=== PATIENT | female | born 1930 | race Caucasian/White ===

== ENCOUNTER 2018-10-02 02:14 | Inpatient (IN) | payer OTHER, MEDICAID ==
[2018-10-02] VITALS (7 sets, daily range): BP systolic 114–162; BP diastolic 44–66
[~2018-10-02] VITALS: Ht 160 cm; Wt 138.3 kg
[~2018-10-02 02:14] MED LIST: ACETAMINOPHEN-1 EAC1 PO; AMOXICILLIN 50500 MG PO; ASPIR 8181 MG PO; BACTRIM DS TAB1 EACH PO; BISACODYL SUPP10 MG RECTAL; COLACE100 MG PO; ELIQUIS5 MG PO; ENOXAPARIN40 MG/0.1 SUBQ; IPRAT-ALBUT 0.5-3 ML INH; LASIX 40 MG TAB40 M2 PO; MILK OF MA2400 MG/10 PO; MIRALAX17 GM PO; NOHOMEMEDICATIONS; NORCO 5-325 TA1 EACH PO; ONDANSETRON HCL4 M2 PO; POTASSIUM20 PO; ROBITUSSIN100 MG/53 PO; SENNA8.6 MG PO; SUDAFED 12 HOU120 MG PO; TESSALON PERLE100 MG PO; XANAX 0.25 MG0.25 MG PO; ZITHROMAX500 MG PO; ZOFRAN4 MG PO; ZOLOFT25 MG PO
[2018-10-02] MEDS ORDERED: ALBUTEROL2.5 MG/31 (02:38)
[2018-10-02] MEDS ORDERED: SPIRIVA (02:38)
[2018-10-02] MEDS ORDERED: LASIX 40 MG TAB40 M2 (02:38)
[2018-10-02] MEDS ORDERED: VALTREX 500 MG500 M1 (02:39)
[2018-10-02] MEDS ORDERED: CLARITIN10 MG (02:39)
[2018-10-02] MEDS ORDERED: POTASSIUM20 (02:39)
[2018-10-02 03:23] LABS: ABSOLUTE LYMPHOCYTES 0.9 thou/uL (0.8-5.3); ABSOLUTE MONOCYTES 0.4 thou/uL (0.0-1.2); ABSOLUTE NEUTROPHILS 3.9 thou/uL (1.6-8.1); BASOPHILS 0.6 %; EOSINOPHILS 0.2 %; HEMATOCRIT 36.9 % (37.0-47.0); HEMOGLOBIN 11.5 gm/dL (12.0-15.0); LYMPHOCYTES 17.8 %; MCH 25.7 pg (26.0-34.0); MCHC 31.1 g/dL (28.0-37.0); MCV 82.7 fL (80.0-100.0); MONOCYTES 7.4 %; MPV 6.6 fl. (7.2-11.1); NUCLEATED RBCS 0 /100WBC; PLATELET COUNT* 218 thou/uL (150-400); RBC 4.46 mil/uL (4.20-5.00); RDW-CV 16.5 % (10.5-14.5); WBC 5.3 thou/uL (4.0-11.0)
[2018-10-02 03:31] LABS: BUN 15 mg/dL (7-18); CHLORIDE 92 mmol/L (98-107); CREATININE 0.5 mg/dL (0.6-1.3); GLUCOSE 122 mg/dL (70-99); POTASSIUM 4.4 mmol/L (3.5-5.1); SODIUM 140 mmol/L (136-145)
[2018-10-02 03:37] LABS: CO2 > 45 mmol/L (21-32)
[2018-10-02 03:42] LABS: ALBUMIN 2.9 g/dL (3.4-5.0); ALKALINE PHOSPHATASE 73 U/L (46-116); NT-PRO BRAIN NAT PEPTIDE 724 pg/mL (<300); SGOT 35 U/L (15-37); SGPT 29 U/L (30-65); TOTAL BILIRUBIN 0.3 mg/dL (<0.1-1.0); TOTAL PROTEIN 8.2 g/dL (6.4-8.2); TROPONIN-I LEVEL <0.06 ng/mL (<0.06)
[2018-10-02 03:46] LABS: BE 16.2 mmol/L (-2 to +3)
[2018-10-02 03:49] LABS: PCO2 99.5 mmHg (35.0-45.0); pH 7.292 (7.340-7.450)
[2018-10-02 04:35] LABS: INFLUENZA A ANTIGEN None Detected (None Detect); INFLUENZA B ANTIGEN None Detected (None Detect)
[2018-10-02 06:39] LABS: BE 21.1 mmol/L (-2 to +3); PO2 80.9 mmHg (75.0-100.0)
[2018-10-02 06:41] LABS: pH 7.268 (7.340-7.450)
[2018-10-02 06:42] LABS: HCO3 53.8 mmol/L (22.0-26.0); PCO2 120.5 mmHg (35.0-45.0)
[2018-10-02] MEDS ORDERED: ACETAMINOPHEN-1 EAC1 PO (08:07)
[2018-10-02 10:28] LABS: BE 20.3 mmol/L (-2 to +3); PO2 93.2 mmHg (75.0-100.0); pH 7.353 (7.340-7.450)
[2018-10-02 10:29] LABS: PCO2 92.4 mmHg (35.0-45.0)
[2018-10-02 10:30] LABS: HCO3 50.2 mmol/L (22.0-26.0)
--- NOTE | 2018-10-02 13:46 | EKG ---
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 : 1930 Requested By: Mikayla Collins Order Number: [id number] MD: Zohaib Calle Measurements Intervals [place] Rate: 91 P: 20 IA: 207 QRS: 15 QRSD: 89 T: 77 QT: 351 QTc: 432 Interpretive Statements Sinus rhythm Borderline prolonged IA interval Low voltage, precordial leads Abnormal R-wave progression, early transition Compared to ECG 10/22/2016 05:15:08 No significant changes Electronically Signed On 10-02-2018 13:46:25 JEWELRY BENCH MOLDER by Zohaib Calle [email or web address] <ELECTRONICALLY SIGNED> By: Zohaib Calle MD, [facility] 10/02/18 1346 8 8 Zohaib Calle MD, [facility] /EPI
[2018-10-03 04:00] VITALS: BP 116/68
[2018-10-03 05:09] LABS: ABSOLUTE LYMPHOCYTES 0.7 thou/uL (0.8-5.3); ABSOLUTE MONOCYTES 0.2 thou/uL (0.0-1.2); ABSOLUTE NEUTROPHILS 3.1 thou/uL (1.6-8.1); BASOPHILS 0.2 %; HEMATOCRIT 35.1 % (37.0-47.0); HEMOGLOBIN 10.8 gm/dL (12.0-15.0); LYMPHOCYTES 16.7 %; MCH 25.4 pg (26.0-34.0); MCHC 30.9 g/dL (28.0-37.0); MCV 82.2 fL (80.0-100.0); MONOCYTES 4.8 %; MPV 6.8 fl. (7.2-11.1); NUCLEATED RBCS 0 /100WBC; PLATELET COUNT* 206 thou/uL (150-400); POLYS 78.3 %; RBC 4.27 mil/uL (4.20-5.00); RDW-CV 16.5 % (10.5-14.5)
[2018-10-03 06:06] LABS: BUN 20 mg/dL (7-18); CALCIUM 8.4 mg/dL (8.5-10.1); CHLORIDE 98 mmol/L (98-107); CREATININE 0.5 mg/dL (0.6-1.3); POTASSIUM 3.8 mmol/L (3.5-5.1); SODIUM 147 mmol/L (136-145)
[2018-10-03 06:23] LABS: CO2 > 45 mmol/L (21-32)
[2018-10-03 06:45] LABS: GLUCOSE 136 mg/dL (70-99)
[2018-10-03 08:35] VITALS: BP 127/36
[2018-10-03 10:09] LABS: BE 18.6 mmol/L (-2 to +3); PO2 64.5 mmHg (75.0-100.0); pH 7.433 (7.340-7.450)
--- NOTE | 2018-10-03 10:33 | CON ---
[facility] [address] [place] [address] CONSULTATION Name: AMARIS MENSAH Room: [address] IN .R.#: [id number] Admission: 10/02/18 Attend Phys: Mando Franklin Discharge: Date of : 34 Report #: [id number] THIS REPORT FOR: //name// CC: Luis Enrique Bell DATE OF SERVICE: 10/02/2018 REASON FOR CONSULTATION: Respiratory failure. HISTORY OF PRESENT ILLNESS: Daughter at the bedside helped with the history, although the patient was awake and she provided some history through the BiPAP mask. This is an 88-year-old female patient, resident of a nursing facility, brought in overnight for shortness of breath. Per the daughter, the patient is on oxygen at home; she is not sure how much, but the patient said around 2-3 liters. The daughter thought her mother had asthma, the patient said no COPD. The patient never smoked in the past. Her shortness of breath had been going on for 3-4 days with cough that is mostly dry. The daughter saw her mother 4 days ago and she noticed that her mental status is not at baseline. She forgot that she had lunch that day. There is no mention of sick contacts. The patient did not have history of nasal discharge, obstruction or sore throat. Per the daughter, the patient is on as needed nebulization treatments. The patient denied any pain. The patient was in respiratory distress with hypercapnia and she was placed on BiPAP overnight. She has multiple sets of ABGs reviewed and will be discussed below. The patient has history of DVT. Going back to 2016, she received anticoagulation for a few months. It sounded like it was provoked after a procedure at that time. The patient and her daughter declined any history to suggest aspiration or choking with meals. PAST MEDICAL HISTORY: PE as mentioned above, history of COPD/asthma, history of psoriasis. There is history of PE. 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 Does not smoke currently, but apparently, she had known significant history of smoking in the past per the family. Does not drink alcohol. Resident of a nursing facility. PAST SURGICAL HISTORY: No major chest surgery. FAMILY HISTORY: Positive for coronary artery disease. ALLERGIES: None. HOME MEDICATIONS: DuoNeb, Spiriva, Lasix, loratadine, aspirin. REVIEW OF SYSTEMS: She has no fever, no chills, no visual changes, no sputum production, no palpitation, no chest pain, no change in bowel [place], [place] [address] CONSULTATION Name: WESTTeaAMARIS Gilmore Room: [address] IN [facility]#: [id number] Admission: 10/02/18 Attend Phys: Mando Franklin Discharge: Date of : 34 Report #: [id number] she has tendency towards constipation. No dysuria, frequency or urgency. No back pain, no abdominal pain. Per the daughter, the patient is bed bound, does not move much. PHYSICAL EXAMINATION: GENERAL: She was on BiPAP at 60%. Awake, alert, answers question properly through the BiPAP mask. VITAL SIGNS: Blood pressure 127/53, pulse rate of 95, temperature 37.4. HEENT: Overweight lady with BiPAP mask in place, did not take the BiPAP mask off. I did not examine oral cavity. External ear looks healthy and normal. NECK: Full range of movement. CHEST: Diminished air movement bilaterally, prolonged expiratory phase, some crackles. No definite wheezes. HEART: S1, S2, no murmur. ABDOMEN: Obese, soft, lax, benign, nontender, positive bowel sounds. No masses felt. EXTREMITIES: Lower extremity, some chronic lymphedema noted. No calf tenderness. No signs of DVT. PSYCHIATRIC: Mood and affect seems to be appropriate, answering question properly. Good insight and judgment. NEUROLOGIC: Moving 4 extremities spontaneously. No focal weakness. LABORATORY DATA: Her chest x-ray showed perihilar infiltrate versus a mass. Her white blood count is 5.3, hemoglobin 11.5, platelet of 218. ABGs: The last set of ABG 7.35/92/93 and this was done on 60% on AVAPS. Previous ABGs noted initially 7.29//77 that was on 8 liter oxygen. Her bicarbonate on the BMP is more than 45, the chloride is 92, potassium 4.4, creatinine of 0.5. Rapid test for Influenza A and B negative. IMPRESSION: 1. [id number]-[id number] hypoxic and hypercapnic respiratory failure. 2. Chronic obstructive pulmonary disease/asthma exacerbation. 3. 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 4. History of pulmonary embolism and deep venous thrombosis, off anticoagulation at this point. 5. Abnormal chest x-ray. 6. Pulmonary infiltrate. 7. Pneumonia. PLAN: 1. At this point, continue the antibiotics, scheduled nebulization treatment. I will place her on steroids for now. Continue with AVAPS and awaiting the CT of the chest that would clarify for any evidence of PE. I will order Doppler ultrasound of the lower extremities. 2. Followup on chest imaging. We will make further recommendation after we get the CT of the chest. [address] [place] [address] CONSULTATION Name: AMARIS MENSAH Mando Room: [address] IN ..#: [id number] Admission: 10/02/18 Attend Phys: Mando Franklin Discharge: Date of : 34 Report #: [id number] Thank you for the consult. Discussed with the patient and her daughter, also discussed with RT if we can wean her oxygen down, we can start giving her breaks off the BiPAP as long as she keeps her O2 sats in a safe level, but definitely would recommend the AVAPS p.r.n. and during sleep. <ELECTRONICALLY SIGNED> By: Khanh Goodman MD 10/03/18 1033 1111 [id number] Goodman MD /nt
[2018-10-03 12:21] LABS: HCO3 46.3 mmol/L (22.0-26.0); PCO2 70.9 mmHg (35.0-45.0)
[2018-10-03 12:37] VITALS: BP 127/62
[2018-10-03 16:49] VITALS: BP 139/82
[2018-10-03 20:03] VITALS: BP 118/56
[2018-10-04] VITALS: BP 123/68
[2018-10-04 04:00] VITALS: BP 120/58
[2018-10-04 08:00] VITALS: BP 167/72
[2018-10-04 12:18] VITALS: BP 173/73
[2018-10-04 16:00] VITALS: BP 116/56
[2018-10-04 19:30] VITALS: BP 162/74
[2018-10-05] VITALS: BP 127/79
[2018-10-05 04:00] VITALS: BP 130/80
[2018-10-05 05:31] LABS: ABSOLUTE LYMPHOCYTES 0.7 thou/uL (0.8-5.3); ABSOLUTE MONOCYTES 0.3 thou/uL (0.0-1.2); ABSOLUTE NEUTROPHILS 3.7 thou/uL (1.6-8.1); HEMOGLOBIN 10.9 gm/dL (12.0-15.0); MCH 25.8 pg (26.0-34.0); MCHC 31.1 g/dL (28.0-37.0); MCV 83.1 fL (80.0-100.0); MONOCYTES 5.5 %; MPV 7.5 fl. (7.2-11.1); NUCLEATED RBCS 0 /100WBC; PLATELET COUNT* 210 thou/uL (150-400); POLYS 78.5 %; RDW-CV 16.9 % (10.5-14.5); WBC 4.7 thou/uL (4.0-11.0)
[2018-10-05 05:55] LABS: ALBUMIN 2.7 g/dL (3.4-5.0); CALCIUM 8.4 mg/dL (8.5-10.1); CREATININE 0.6 mg/dL (0.6-1.3); TOTAL BILIRUBIN 0.4 mg/dL (<0.1-1.0); TOTAL PROTEIN 7.2 g/dL (6.4-8.2)
[2018-10-05 07:40] VITALS: BP 109/60
[2018-10-05 12:00] VITALS: BP 158/68
[2018-10-05 14:01] LABS: BE 9.4 mmol/L (-2 to +3); HCO3 36.2 mmol/L (22.0-26.0); PO2 79.3 mmHg (75.0-100.0); pH 7.395 (7.340-7.450)
[2018-10-05 14:07] LABS: PCO2 60.5 mmHg (35.0-45.0)
[2018-10-05 20:10] VITALS: BP 150/76
[2018-10-06 00:16] VITALS: BP 114/49
[2018-10-06 03:57] VITALS: BP 115/62
[2018-10-06 05:38] LABS: CALCIUM 8.5 mg/dL (8.5-10.1); CREATININE 0.6 mg/dL (0.6-1.3); POTASSIUM 3.7 mmol/L (3.5-5.1)
[2018-10-06 08:00] VITALS: BP 105/69
[2018-10-06 12:30] VITALS: BP 135/64
--- NOTE | 2018-10-06 15:00 | 2DMMODE ---
[place] [address] 2 D/M-MODE ECHOCARDIOGRAM Name: AMARIS MENSAH Room: [address] IN .R.#: [id number] Admission: 10/02/18 Attend Phys: Sanchez Bell Discharge: Date of : 34 Date of Service: 10/06/18 1500 Report #: [id number] THIS REPORT FOR: //name// APPROVED REPORT Study performed: 10/06/2018 13:35:15 EXAM: Comprehensive 2D, Doppler, and color-flow Echocardiogram Patient Location: Bedside BSA: 2.25 HR: 67 bpm BP: 115/62 mmHg Other Information Study Quality: Fair Indications Dyspnea 2D Dimensions IVSd: 9.66 (7-11mm) LVOT Diam: 20.61 (18-24mm) LVDd: 45.86 mm PWd: 9.67 (7-11mm) Ascending Ao: 36.09 (22-36mm) LVDs: 30.50 (25-40mm) Aortic Root: 32.57 mm Volumes Left Atrial Volume (Systole) LA ESV Index: 20.90 mL/m2 Aortic Valve AoV Peak Arcadio.: 1.00 m/s AO Peak Gr.: 3.98 mmHg LVOT Max P.45 mmHg AO Mean Gr.: 2.45 mmHg LVOT Mean P.01 mmHg LVOT Max V: 1.05 m/s AO V2 VTI: 20.73 cm LVOT Mean V: 0.64 m/s NEDRA (VTI): 3.76 cm2 LVOT V1 VTI: 23.35 cm Mitral Valve E/A Ratio: 0.73 MV Decel. Time: 250.70 ms MV E Max Arcadio.: 0.71 m/s MV PHT: 72.70 ms MVA (PHT): 3.03 [place]2 [place] [address] 2 D/M-MODE ECHOCARDIOGRAM Name: AMARIS MENSAH Room: [address] IN .R.#: [id number] Admission: 10/02/18 Attend Phys: Sanchez Bell Discharge: Date of : 34 Date of Service: 10/06/18 1500 Report #: [id number] TDI E/Lateral E': 8.88 E/Medial E': 7.89 Medial E' Arcadio.: 0.09 m/s Lateral E' Arcadio.: 0.08 m/s Pulmonary Valve PV Peak Arcadio.: 1.32 m/s PV Peak Gr.: 6.95 mmHg Tricuspid Valve RAP Estimate: 5.00 mmHg TR Peak Gr.: 41.80 mmHg RVSP: 46.80 mmHg PA Pressure: 46.80 mmHg Left Ventricle The left ventricle is normal size. There is normal LV segmental wall motion. There is normal left ventricular wall thickness. Left ventricular systolic function is normal. The left ventricular ejection fraction is within the normal range. LVEF is 60-65%. Grade I - abnormal relaxation pattern. Right Ventricle The right ventricle is normal size. The right ventricular systolic function is normal. Atria The left atrium size is normal. The right atrium size is normal. Aortic Valve Mild aortic valve sclerosis. Trace aortic regurgitation. There is no aortic valvular stenosis. Mitral Valve There is mitral annular calcification. Trace mitral regurgitation. No evidence of mitral valve stenosis. Tricuspid Valve The tricuspid valve is normal in structure. Mild to moderate tricuspid regurgitation. Pulmonic Valve The pulmonary valve is normal in structure. Trace pulmonic regurgitation[place] [address] 2 D/M-MODE ECHOCARDIOGRAM Name: AMARIS MENSAH Room: [address]#: [id number] Admission: 10/02/18 Attend Phys: Sanchez Bell Discharge: Date of : 34 Date of Service: 10/06/18 1500 Report #: [id number] The aortic root is normal in size. IVC is normal in size and collapses >50% with inspiration. Pericardium There is no pericardial effusion. <Conclusion> The left ventricle is normal size. There is normal left ventricular wall thickness. Left ventricular systolic function is normal. The left ventricular ejection fraction is within the normal range. LVEF is 60-65%. Grade I - abnormal relaxation pattern. The right ventricle is normal size. The left atrium size is normal. Mild aortic valve sclerosis. Trace aortic regurgitation. There is no aortic valvular stenosis. Trace mitral regurgitation. No evidence of mitral valve stenosis. The tricuspid valve is normal in structure. Mild to moderate tricuspid regurgitation. IVC is normal in size and collapses >50% with inspiration. There is no pericardial effusion. There is normal LV segmental wall motion. <ELECTRONICALLY SIGNED> By: Chin Walton MD, FACC 10/06/18 1500 1500 1500 Chin Walton MD, FACC /INF
[2018-10-06 16:59] VITALS: BP 124/55
[2018-10-06 20:00] VITALS: BP 110/50
[2018-10-07] VITALS: BP 115/64
[2018-10-07 04:00] VITALS: BP 159/57
[2018-10-07 05:13] LABS: ABSOLUTE LYMPHOCYTES 0.5 thou/uL (0.8-5.3); ABSOLUTE MONOCYTES 0.2 thou/uL (0.0-1.2); ABSOLUTE NEUTROPHILS 3.8 thou/uL (1.6-8.1); BASOPHILS 0.1 %; HEMATOCRIT 35.4 % (37.0-47.0); LYMPHOCYTES 11.1 %; MCH 25.5 pg (26.0-34.0); MCV 82.5 fL (80.0-100.0); MONOCYTES 3.9 %; MPV 7.6 fl. (7.2-11.1); NUCLEATED RBCS 0 /100WBC; PLATELET COUNT* 199 thou/uL (150-400); POLYS 84.9 %; RBC 4.29 mil/uL (4.20-5.00); RDW-CV 16.7 % (10.5-14.5); WBC 4.4 thou/uL (4.0-11.0)
[2018-10-07 05:22] LABS: CALCIUM 8.5 mg/dL (8.5-10.1); CREATININE 0.7 mg/dL (0.6-1.3); POTASSIUM 3.3 mmol/L (3.5-5.1)
[2018-10-07 08:00] VITALS: BP 142/65
[2018-10-07 11:58] VITALS: BP 147/55
[2018-10-07 16:50] VITALS: BP 101/41
[2018-10-07 17:21] LABS: CALCIUM 8.1 mg/dL (8.5-10.1); CREATININE 0.6 mg/dL (0.6-1.3); POTASSIUM 3.6 mmol/L (3.5-5.1)
[2018-10-07 20:20] VITALS: BP 108/55
[2018-10-08] VITALS: BP 134/56
[2018-10-08 04:00] VITALS: BP 111/77
[2018-10-08 05:15] LABS: HEMOGLOBIN 11.3 gm/dL (12.0-15.0); MCH 25.6 pg (26.0-34.0); MCHC 31.3 g/dL (28.0-37.0); MCV 81.7 fL (80.0-100.0); MPV 7.8 fl. (7.2-11.1); NUCLEATED RBCS 0 /100WBC; PLATELET COUNT* 202 thou/uL (150-400); RDW-CV 16.9 % (10.5-14.5); WBC 6.3 thou/uL (4.0-11.0)
[2018-10-08 06:06] LABS: ABSOLUTE MONOCYTES 0.1 thou/uL (0.0-1.2); ABSOLUTE NEUTROPHILS 5.2 thou/uL (1.6-8.1); ANISOCYTOSIS 1+; PLATELET ESTIMATE ADEQUATE; POIKILOCYTOSIS 1+
[2018-10-08 08:00] VITALS: BP 119/96
[2018-10-08 09:47] LABS: BE 8.2 mmol/L (-2 to +3); HCO3 34.8 mmol/L (22.0-26.0); pH 7.395 (7.340-7.450)
[2018-10-08 09:52] LABS: PCO2 58.2 mmHg (35.0-45.0); PO2 58.6 mmHg (75.0-100.0)
[2018-10-08 11:26] VITALS: BP 132/65
[2018-10-08 15:29] VITALS: BP 144/65
[2018-10-08 20:00] VITALS: BP 113/59
[2018-10-09] VITALS: BP 169/67
[2018-10-09 04:00] VITALS: BP 124/58
[2018-10-09 05:10] LABS: ABSOLUTE LYMPHOCYTES 0.7 thou/uL (0.8-5.3); ABSOLUTE MONOCYTES 0.2 thou/uL (0.0-1.2); ABSOLUTE NEUTROPHILS 4.9 thou/uL (1.6-8.1); BASOPHILS 0.1 %; HEMATOCRIT 35.3 % (37.0-47.0); HEMOGLOBIN 10.9 gm/dL (12.0-15.0); LYMPHOCYTES 11.7 %; MCH 25.2 pg (26.0-34.0); MCV 81.3 fL (80.0-100.0); MONOCYTES 2.8 %; MPV 7.8 fl. (7.2-11.1); NUCLEATED RBCS 0 /100WBC; PLATELET COUNT* 197 thou/uL (150-400); POLYS 85.4 %; RBC 4.34 mil/uL (4.20-5.00); WBC 5.7 thou/uL (4.0-11.0)
[2018-10-09 05:26] LABS: CALCIUM 8.1 mg/dL (8.5-10.1); CREATININE 0.6 mg/dL (0.6-1.3); POTASSIUM 3.7 mmol/L (3.5-5.1)
[2018-10-09 08:12] VITALS: BP 148/58
[2018-10-09 12:04] VITALS: BP 139/50
[2018-10-09 15:30] VITALS: BP 125/50
[2018-10-09 20:00] VITALS: BP 130/43
[2018-10-10] VITALS (7 sets, daily range): BP systolic 121–153; BP diastolic 44–69
[2018-10-10 04:35] LABS: ABSOLUTE LYMPHOCYTES 0.7 thou/uL (0.8-5.3); ABSOLUTE MONOCYTES 0.2 thou/uL (0.0-1.2); ABSOLUTE NEUTROPHILS 5.5 thou/uL (1.6-8.1); HEMATOCRIT 35.7 % (37.0-47.0); HEMOGLOBIN 10.9 gm/dL (12.0-15.0); LYMPHOCYTES 10.6 %; MCH 25.1 pg (26.0-34.0); MCHC 30.6 g/dL (28.0-37.0); MCV 82.2 fL (80.0-100.0); MONOCYTES 3.1 %; MPV 7.7 fl. (7.2-11.1); NUCLEATED RBCS 0 /100WBC; PLATELET COUNT* 213 thou/uL (150-400); POLYS 86.3 %; RBC 4.35 mil/uL (4.20-5.00); RDW-CV 17.1 % (10.5-14.5); WBC 6.4 thou/uL (4.0-11.0)
[2018-10-10 04:52] LABS: CALCIUM 7.8 mg/dL (8.5-10.1); CREATININE 0.5 mg/dL (0.6-1.3); POTASSIUM 3.8 mmol/L (3.5-5.1)
[2018-10-10 06:23] LABS: BE 4.8 mmol/L (-2 to +3); HCO3 32.6 mmol/L (22.0-26.0); PO2 87.9 mmHg (75.0-100.0); pH 7.321 (7.340-7.450)
[2018-10-10 06:31] LABS: PCO2 64.6 mmHg (35.0-45.0)
[2018-10-11 04:25] VITALS: BP 118/62
[2018-10-11 04:57] LABS: ABSOLUTE LYMPHOCYTES 0.6 thou/uL (0.8-5.3); ABSOLUTE MONOCYTES 0.2 thou/uL (0.0-1.2); ABSOLUTE NEUTROPHILS 5.7 thou/uL (1.6-8.1); BASOPHILS 0.1 %; HEMATOCRIT 34.5 % (37.0-47.0); HEMOGLOBIN 10.7 gm/dL (12.0-15.0); LYMPHOCYTES 9.7 %; MCH 25.5 pg (26.0-34.0); MCHC 31.1 g/dL (28.0-37.0); MCV 82.2 fL (80.0-100.0); MONOCYTES 3.7 %; MPV 7.9 fl. (7.2-11.1); NUCLEATED RBCS 0 /100WBC; PLATELET COUNT* 218 thou/uL (150-400); POLYS 86.5 %; RBC 4.19 mil/uL (4.20-5.00); RDW-CV 16.9 % (10.5-14.5); WBC 6.6 thou/uL (4.0-11.0)
[2018-10-11 08:00] VITALS: BP 132/57
[2018-10-11 12:00] VITALS: BP 151/59
[2018-10-11 16:00] VITALS: BP 121/55
[2018-10-11 20:00] VITALS: BP 117/56
[2018-10-12] VITALS: BP 131/68
[2018-10-12 04:00] VITALS: BP 154/73
[2018-10-12 08:00] VITALS: BP 173/75
[2018-10-12 12:00] VITALS: BP 148/47
[2018-10-12 16:00] VITALS: BP 107/74
[2018-10-12 20:00] VITALS: BP 131/51
[2018-10-13] VITALS: BP 131/45
[2018-10-13 03:55] LABS: HEMATOCRIT 34.3 % (37.0-47.0); HEMOGLOBIN 10.7 gm/dL (12.0-15.0); MCH 25.4 pg (26.0-34.0); MCHC 31.1 g/dL (28.0-37.0); MCV 81.6 fL (80.0-100.0); MPV 7.5 fl. (7.2-11.1); NUCLEATED RBCS 0 /100WBC; PLATELET COUNT* 216 thou/uL (150-400); RBC 4.21 mil/uL (4.20-5.00); RDW-CV 17.5 % (10.5-14.5); WBC 7.6 thou/uL (4.0-11.0)
[2018-10-13 04:00] VITALS: BP 115/54
[2018-10-13 04:04] LABS: CALCIUM 7.9 mg/dL (8.5-10.1); CREATININE 0.6 mg/dL (0.6-1.3); POTASSIUM 3.7 mmol/L (3.5-5.1)
[2018-10-13 05:15] LABS: ABSOLUTE LYMPHOCYTES 0.4 thou/uL (0.8-5.3); ABSOLUTE MONOCYTES 0.1 thou/uL (0.0-1.2); ABSOLUTE NEUTROPHILS 7.1 thou/uL (1.6-8.1); PLATELET ESTIMATE ADEQUATE
[2018-10-13 05:17] LABS: ANISOCYTOSIS Occasional; HYPOCHROMASIA 1+
[2018-10-13 08:00] VITALS: BP 117/96
[2018-10-13 09:54] LABS: BE 1.4 mmol/L (-2 to +3); HCO3 27.4 mmol/L (22.0-26.0); PO2 88.8 mmHg (75.0-100.0); pH 7.365 (7.340-7.450)
[2018-10-13 12:00] VITALS: BP 125/46
[2018-10-13 16:34] VITALS: BP 135/73
[2018-10-13 20:00] VITALS: BP 153/62
[2018-10-14] VITALS: BP 115/57
[2018-10-14 04:00] VITALS: BP 141/59
[2018-10-14 05:21] LABS: ABSOLUTE LYMPHOCYTES 0.5 thou/uL (0.8-5.3); ABSOLUTE MONOCYTES 0.2 thou/uL (0.0-1.2); ABSOLUTE NEUTROPHILS 7.1 thou/uL (1.6-8.1); BASOPHILS 0.2 %; HEMATOCRIT 34.2 % (37.0-47.0); HEMOGLOBIN 10.7 gm/dL (12.0-15.0); LYMPHOCYTES 6.1 %; MCH 25.7 pg (26.0-34.0); MCHC 31.4 g/dL (28.0-37.0); MCV 81.9 fL (80.0-100.0); MONOCYTES 2.3 %; MPV 7.9 fl. (7.2-11.1); NUCLEATED RBCS 0 /100WBC; PLATELET COUNT* 219 thou/uL (150-400); POLYS 91.4 %; RBC 4.18 mil/uL (4.20-5.00); RDW-CV 17.2 % (10.5-14.5); WBC 7.8 thou/uL (4.0-11.0)
[2018-10-14 06:19] LABS: CREATININE 0.6 mg/dL (0.6-1.3); POTASSIUM 3.8 mmol/L (3.5-5.1)
[2018-10-14 08:00] VITALS: BP 148/66
[2018-10-14 12:39] VITALS: BP 120/63
[2018-10-14 15:28] VITALS: BP 127/67
[2018-10-14 20:00] VITALS: BP 125/48
[2018-10-15] VITALS: BP 144/58
[2018-10-15 04:00] VITALS: BP 108/33
[2018-10-15 04:58] LABS: ABSOLUTE MONOCYTES 0.7 thou/uL (0.0-1.2); ABSOLUTE NEUTROPHILS 7.9 thou/uL (1.6-8.1); HEMATOCRIT 34.5 % (37.0-47.0); HEMOGLOBIN 10.9 gm/dL (12.0-15.0); LYMPHOCYTES 10.3 %; MCHC 31.6 g/dL (28.0-37.0); MCV 82.4 fL (80.0-100.0); MONOCYTES 7.7 %; MPV 7.6 fl. (7.2-11.1); NUCLEATED RBCS 0 /100WBC; PLATELET COUNT* 209 thou/uL (150-400); RBC 4.18 mil/uL (4.20-5.00); RDW-CV 17.4 % (10.5-14.5); WBC 9.6 thou/uL (4.0-11.0)
[2018-10-15 05:06] LABS: CALCIUM 7.6 mg/dL (8.5-10.1); CREATININE 0.4 mg/dL (0.6-1.3); POTASSIUM 3.1 mmol/L (3.5-5.1)
[2018-10-15 11:00] VITALS: BP 135/58
[2018-10-15 11:06] VITALS: BP 108/33
[2018-10-15] MEDS ORDERED: COLACE100 MG PO (11:14)
[2018-10-15] MEDS ORDERED: LEVAQUIN 750 M750 MG PO (11:17)
[2018-10-15] MEDS ORDERED: PREDNISONE 10 M10 MG PO (11:18)
[2018-10-15] MEDS ORDERED: PROTONIX40 M1 PO (11:19)
[2018-10-15] MEDS ORDERED: TYLENOL325 MG PO (11:20)
[2018-10-15] MEDS ORDERED: ENOXAPARIN40 MG/0.1 SUBQ (11:21)
[2018-10-15] MEDS ORDERED: ONDANSETRON HCL4 M2 PO (11:22)
[2018-10-15 11:45] VITALS: BP 125/53
== END 2018-10-15 13:16 | DRG 177 ==
LOC: M.ERS 02:14 → M.2W 04:16 → M.TBA-ER 04:16 → M.2W 04:45
PROVIDERS: Emergency Medicine; Internal Medicine; Internal Medicine Pulmonary Disease; ADMIT Internal Medicine
PROC: 5A09357 Assistance with Respiratory Ventilation, Less than 24 Consecutive Hours, Continuous Positive Airway Pressure (ICD-10-PCS; principal; 2018-10-02)
PROC: 5A09357 Assistance with Respiratory Ventilation, Less than 24 Consecutive Hours, Continuous Positive Airway Pressure (ICD-10-PCS; 2018-10-03)
PROC: 5A09357 Assistance with Respiratory Ventilation, Less than 24 Consecutive Hours, Continuous Positive Airway Pressure (ICD-10-PCS; 2018-10-04)
PROC: 5A09357 Assistance with Respiratory Ventilation, Less than 24 Consecutive Hours, Continuous Positive Airway Pressure (ICD-10-PCS; 2018-10-05)
PROC: 5A09357 Assistance with Respiratory Ventilation, Less than 24 Consecutive Hours, Continuous Positive Airway Pressure (ICD-10-PCS; 2018-10-06)
PROC: 5A09357 Assistance with Respiratory Ventilation, Less than 24 Consecutive Hours, Continuous Positive Airway Pressure (ICD-10-PCS; 2018-10-07)
PROC: 5A09357 Assistance with Respiratory Ventilation, Less than 24 Consecutive Hours, Continuous Positive Airway Pressure (ICD-10-PCS; 2018-10-08)
PROC: 5A09357 Assistance with Respiratory Ventilation, Less than 24 Consecutive Hours, Continuous Positive Airway Pressure (ICD-10-PCS; 2018-10-09)
PROC: 5A09357 Assistance with Respiratory Ventilation, Less than 24 Consecutive Hours, Continuous Positive Airway Pressure (ICD-10-PCS; 2018-10-10)
PROC: 5A09357 Assistance with Respiratory Ventilation, Less than 24 Consecutive Hours, Continuous Positive Airway Pressure (ICD-10-PCS; 2018-10-11)
PROC: 5A09357 Assistance with Respiratory Ventilation, Less than 24 Consecutive Hours, Continuous Positive Airway Pressure (ICD-10-PCS; 2018-10-12)
PROC: 5A09357 Assistance with Respiratory Ventilation, Less than 24 Consecutive Hours, Continuous Positive Airway Pressure (ICD-10-PCS; 2018-10-13)
PROC: 5A09357 Assistance with Respiratory Ventilation, Less than 24 Consecutive Hours, Continuous Positive Airway Pressure (ICD-10-PCS; 2018-10-14)
DX: J15.6 Pneumonia due to other Gram-negative bacteria (principal); J96.21 Acute and chronic respiratory failure with hypoxia; J96.22 Acute and chronic respiratory failure with hypercapnia; E87.2 Acidosis; R65.10 Systemic inflammatory response syndrome (SIRS) of non-infectious origin without acute organ dysfunction; Z68.43 Body mass index [BMI] 50.0-59.9, adult; J98.11 Atelectasis; J45.901 Unspecified asthma with (acute) exacerbation; J44.9 Chronic obstructive pulmonary disease, unspecified; L40.9 Psoriasis, unspecified; E66.01 Morbid (severe) obesity due to excess calories; E87.6 Hypokalemia; Z86.718 Personal history of other venous thrombosis and embolism; Z86.711 Personal history of pulmonary embolism; Z87.891 Personal history of nicotine dependence; Z79.82 Long term (current) use of aspirin; Z79.899 Other long term (current) drug therapy; Z82.49 Family history of ischemic heart disease and other diseases of the circulatory system